=== PATIENT | male | born 1935 | race Caucasian/White ===

== ENCOUNTER → 2017-03-14 | Outpatient (CLI) | payer MEDICARE, MEDICAID ==
[~2017-03-14] MED LIST: ASPIRIN 81MG TA81 MG PO; ATORVASTATIN CA10 MG PO; CLOPIDOGREL75 MG PO; DITROPAN XL10 M1 PO; DOCUSATE SODIU100 MG PO; FLUTICASONE 50M16 GM; HYDROCODONE-APA1 TA1 PO; LEVAQUIN500 MG PO; METFORMIN1000 MG PO; METOPROLOL25 MG PO; OMNICEF 300 MG300 MG PO; SERTRALINE 100100 MG PO; SERTRALINE 50MG50 MG PO; TAMSULOSIN HYD0.4 MG PO
--- NOTE | 2017-03-15 16:44 | RADIOLOGY REPORT PS360 ---
PROCEDURE: 2-D M-mode and color Doppler study INDICATIONS FOR THE TEST: Chest pain COPD Heart Murmur Tobacco Smoking Palpitations Fatigue Syncope Edema Hypertension Diabetes Mellitus+ Rheumatic Fever SOB WRIGHT Obesity Hyperlipidemia Family History HD Additional History STENTS PATIENT INFORMATION HEIGHT: 74 WEIGHT:164 GENDER: Male B/P:118/72 2-D/M-MODE INTERPRETATION: 2-D MEASUREMENTS OBSERVED VALUES IN CMS Right Ventricular Dimension (RVDd) 1.8 Interventricular Septum (Thickness)(IVsd) 1.3 Left Ventricular Internal Dimensions(LVIDd) 4.7 Left Ventricular Posterior Wall (Thickness)(LVPWd) 0.8 Aortic Root 3.2 Aortic Cusp Separation 1.5 Left Atrial Dimensions (LAD) 4.5 2D 1. Left atrium is mildly enlarged, left ventricle is normal size, there is mild concentric left ventricular hypertrophy present, visually estimated ejection fraction 55% with no obvious regional wall motion abnormality. 2. The right atrium and right ventricle are relatively normal size and function. 3. The aortic valve is thickened and calcified with severe restriction the leaflet mobility. 4. The mitral and tricuspid valve leaflets are minimally thickened. 5. The pulmonic valve is poorly visualized. 6. No significant pericardial effusion noted. DOPPLER INTERROGATION: 1. The maximum aortic out flow velocity recorded study is 4 m/s, resulting in a mean gradient across valve of 35 to 40 mmHg, calculated valve area 0.7 cm represents severe aortic stenosis, there is mild aortic insufficiency present. 2. Mitral inflow velocity within normal range, there is no mitral stenosis, there is mild mitral regurgitation, grade 1 diastolic dysfunction seen with tissue Doppler evidence of raised left atrial pressure. 3. There is mild tricuspid regurgitation noted, tricuspid and jet velocity insufficient for accurate assessment of the right ventricular systolic pressure. CONCLUSION: 1. Mildly enlarged left atrium, normal left ventricular size, mild concentric left ventricular hypertrophy present, visually estimated ejection fraction of 55% with no obvious regional wall motion abnormality, grade 1 diastolic dysfunction seen with tissue Doppler evidence of raised left atrial pressure. 2. Thickened and calcified aortic valve with severe aortic stenosis and mild aortic insufficiency as described above. 3. Mild mitral and tricuspid regurgitation. 4. No significant pericardial effusion noted.
== END ==
LOC: RT 09:30
DX: I06.0 Rheumatic aortic stenosis (principal)